=== PATIENT | male | born 2000 | race Caucasian/White ===

== ENCOUNTER 2020-01-24 08:52 | Emergency (ER) | payer OTHER ==
[~2020-01-24] VITALS: Ht 182.9 cm; Wt 127.0 kg
[2020-01-24 08:58] VITALS: BP 130/54
--- NOTE | 2020-01-24 09:04 | NUR ---
Ambulated to bed 2
--- NOTE | 2020-01-24 09:10 | NUR ---
C/O LEFT EAR PAIN X 2 MONTHS.PT AOX 4 , AFIBRILE , AMBULATORY WITH STEADY GAIT , DENIES N/V/DIZZINESS , EXTERNAL LEFT EAR NO PAIN , WITH WHITISH DISCHARGE UPON EXAMINATION. MED HX: DENIES
--- NOTE | 2020-01-24 09:27 | NUR ---
DR FLORES AT BEDSIDE EVALUATING PT.
[2020-01-24 09:45] VITALS: BP 130/54
--- NOTE | 2020-01-24 09:46 | NUR ---
Patient discharged with v/s stable. Written and verbal after care instructions given and explained otitis externa. Patient alert, oriented and verbalized understanding of instructions. Ambulatory with steady gait. All questions addressed prior to discharge. ID band removed. Patient advised to follow up with PMD. Rx of cortisporin and lidocaine hcl otic drops given. Patient educated on indication of medication including possible reaction and side effects. Opportunity to ask questions provided and answered.
== END 2020-01-24 09:46 | disposition home or self-care (01) ==
LOC: MED 08:52
DX: H60.92 Unspecified otitis externa, left ear (principal)
CPT/HCPCS: 99283